=== PATIENT | male | born 1990 | race Two or more races ===

== ENCOUNTER 2020-05-23 12:26 | Emergency (ER) | payer OTHER ==
[~2020-05-23] VITALS: Ht 172.7 cm; Wt 79.4 kg
[2020-05-23 12:29] VITALS: BP 140/89
--- NOTE | 2020-05-23 12:33 | NUR ---
SEEN BY DR ANGEL,WAITING FOR DISPO
== END 2020-05-23 12:36 ==
LOC: ER 12:30
DX: Z00.00 Encounter for general adult medical examination without abnormal findings (principal); Z60.2 Problems related to living alone